=== PATIENT | female | born 1960 | race Caucasian/White ===

== ENCOUNTER → 2017-03-07 | Outpatient (CLI) | payer OTHER ==
[~2017-03-07] MED LIST: ALBU8.5H8 PO; C PROGESTERONE PO; ESOM40CA PO; ESTR42.53 TP; ESTR8.1S2 PO; FLUO20TA25 PO; FLUT1DIS IH; GOTU435C PO; VALA500T PO
== END | disposition home or self-care (01) ==
LOC: CFH 08:40
PROVIDERS: ATTEND Internal Medicine
DX: Z12.2 Encounter for screening for malignant neoplasm of respiratory organs (principal); Z90.49 Acquired absence of other specified parts of digestive tract; Z87.891 Personal history of nicotine dependence
CPT/HCPCS: G0297